=== PATIENT | female | born 1955 | race Two or more races ===

== ENCOUNTER 2017-10-19 07:04 | Day surgery (SDC) | payer MEDICARE, BC ==
[2017-10-19] MEDS ORDERED: BUPIVACAINE 0.5% W/EPI MPF 30 ML VIAL IVP ONE (07:05)
[2017-10-19] MEDS ORDERED: ONDANSETRON HCL IV 4 MG/2 ML VIAL IVP ONE (07:05)
[2017-10-19] MEDS ORDERED: DEXAMETHASONE PRESERVATIVE FREE 10MG/ML VIAL IV ONE (07:05)
[2017-10-19] MEDS ORDERED: FENTANYL PF 100MCG/2ML VIAL IV ONE (07:05)
[2017-10-19] MEDS ORDERED: LIDOCAINE 1% W/EPI 1:200,000 MPF 30ML SQ ONE (07:05)
[2017-10-19] MEDS ORDERED: MIDAZOLAM HCL 2MG/2ML VIAL IV ONE (07:05)
[2017-10-19] MEDS ORDERED: KETOROLAC 30 MG/ML VIAL IVP ONE (07:05)
[2017-10-19] MEDS ORDERED: *PACU ONLY* KETAMINE HCL 10 MG/ML (20ML) VIAL IV ONE (07:05)
[2017-10-19] MEDS ORDERED: PROPOFOL 10 MG/ML VIAL IV ONE (07:05)
--- NOTE | 2017-10-20 05:29 | Operative Note ---
DATE OF SURGERY: 10/19/2017. PREOPERATIVE DIAGNOSIS: CERVICAL SPONDYLOSIS WITHOUT MYELOPATHY, ICD-10 CODE M47.812. POSTOPERATIVE DIAGNOSIS: CERVICAL SPONDYLOSIS WITHOUT MYELOPATHY, ICD-10 CODE M47.812. PROCEDURE: Radiofrequency rhizotomy of the bilateral cervical facets 4-5, 5-6, and 6-7. ANESTHESIA: Local sedation. ANESTHESIA PROVIDER: Meagan Morrison CRNA. INDICATIONS: This patient presents with primary neck pain. Examination shows tenderness in the cervical spine. Range of motion does produce pain to the neck with extension. Diagnostics show extensive spondylitic change. A previous facet series from 4-5 to 6-7 provided greater than 75 percent pain control. Due to the failure of therapy and the success of the facet series, the patient presents today for rhizotomy for more long-term relief. DESCRIPTION OF PROCEDURE: Intravenous lines, vital sign monitoring, and intravenous sedation. Prepped and draped with sterile technique. Cervical facets in the area of pain at 4-5, 5-6, and 6-7 were marked and infiltrated. A 22-gauge rhizotomy cannula was positioned. Stimulation trial was conducted and rhizotomy burn was performed. Local with anti-inflammatory into the sites. Topical antibiotic and sterile dressing were applied. Will monitor and evaluate. JOB NUMBER: [id number] cc: Suhas Conklin
== END 2017-10-19 08:50 | disposition home or self-care (01) ==
LOC: SUR 07:04
PROVIDERS: ATTEND Pain Medicine Interventional Pain Medicine
DX: M47.812 Spondylosis without myelopathy or radiculopathy, cervical region (principal); F41.8 Other specified anxiety disorders; K21.9 Gastro-esophageal reflux disease without esophagitis; M08.00 Unspecified juvenile rheumatoid arthritis of unspecified site; G25.81 Restless legs syndrome
CPT/HCPCS: J1885; J2405

== ENCOUNTER 2019-06-27 07:22 | Day surgery (SDC) | payer BC, MEDICARE ==
[~2019-06-27 07:22] MED LIST: FAMOTIDINE 20MG TABLET PO ONE; METOCLOPRAMIDE 10 MG TABLET PO ONE; SCOPOLAMINE 1 PATCH TDSY TD ONE
[2019-06-27] MEDS ORDERED: MIDAZOLAM HCL 2MG/2ML VIAL IV ONE (07:23)
[2019-06-27] MEDS ORDERED: PROPOFOL 10 MG/ML VIAL IV ONE (07:23)
[2019-06-27] MEDS ORDERED: FENTANYL PF 100MCG/2ML VIAL IV ONE (07:23)
[2019-06-27] MEDS ORDERED: LIDOCAINE 2% MDV (20MG/ML) 20ML VIAL IV ONE (07:23)
[2019-06-27] MEDS ORDERED: *PACU ONLY* KETAMINE HCL 10 MG/ML (20ML) VIAL IV ONE (07:23)
[2019-06-27] MEDS ORDERED: RINGERS SOLUTION,LACTATED 1,000 ML IV ONE (08:15)
[2019-06-27] MEDS ORDERED: BUPIVACAINE 0.5% W/EPI MPF 30 ML VIAL SQ ONE (09:59)
[2019-06-27] MEDS ORDERED: LIDOCAINE 1% W/EPI 1:100,000 MDV 20 ML VIAL SQ ONE (09:59)
[2019-06-27] MEDS ORDERED: DEXAMETHASONE PRESERVATIVE FREE 10MG/ML VIAL SQ ONE (10:00)
--- NOTE | 2019-06-27 10:59 | Operative Note - [place] ---
DATE OF SURGERY: 06/27/2019 PREOPERATIVE DIAGNOSIS: CERVICAL SPONDYLOSIS WITHOUT MYELOPATHY, ICD-10 CODE M47.812. OPERATION: RADIOFREQUENCY RHIZOTOMY BILATERAL CERVICAL FACETS C5-C6 AND C6-C7. SURGEON: Liam Mckinney D.O. INDICATION: This patient arrives with primary neck pain. Her pain level 0-10 is an 8-9/10. Her treatment history has been extensive. Physical therapy and biomechanical treatments did not work. A facet series had 75+% pain control. Due to the failure of therapies, a cervical rhizotomy was performed and the result of the rhizotomy was also 75% pain control over multiple months, close to a year. Epidural injections have been used with some success. Facet blocks and rhizotomies appear to help the best. Due to the failure of all other therapies and the success of facet series at 75% and rhizotomy at 75%, she is here for repeat rhizotomy. PROCEDURE: Intravenous line, vital sign monitoring, IV sedation, prepped and draped, sterile technique. The patient was positioned prone. Sterile prep, sterile technique. Cervical facets consistent with the facet and rhizotomy procedures were identified and marked at C5-C6 and C6-C7 bilateral, sterile prep, sterile technique. Imaging for guidance. Local for infiltration. Skin infiltrated. A 20-gauge rhizotomy cannula was positioned at each of the sites bilaterally. Stimulation trial was conducted. Rhizotomy burn 80 degrees for 90 seconds with each. A local anesthetic with an antiinflammatory, Dexamethasone 0.1 mg per ml with a mixture of Lidocaine and Bupivacaine into the sites. The needle was removed, areas were cleaned, topical antibiotic. Sterile dressing was not required. She was transferred to the Recovery Room stable. No side effects from the procedure or sedation. She was monitored and will be discharged to home stable. A Medrol Dosepak will be provided for symptomatic relief of the rhizotomy pain. JOB NUMBER: [id number] MTDD
== END 2019-06-27 10:45 | disposition home or self-care (01) ==
LOC: SUR 07:22
PROVIDERS: ATTEND Pain Medicine Interventional Pain Medicine
DX: M47.812 Spondylosis without myelopathy or radiculopathy, cervical region (principal); M06.9 Rheumatoid arthritis, unspecified; K21.9 Gastro-esophageal reflux disease without esophagitis; F17.210 Nicotine dependence, cigarettes, uncomplicated
CPT/HCPCS: 64633; 64634; 01936; J1100; J3010; J7120